=== PATIENT | female | born 1940 | race Caucasian/White ===

== ENCOUNTER 2019-02-24 03:29 | Emergency (ER) | payer MEDICARE ==
[~2019-02-24] VITALS: Ht 162.6 cm; Wt 48.5 kg
[~2019-02-24 03:29] MED LIST: CELEXA; DIAZEPAM; DOXYCYCLINE 10100 MG PO; NORCO 5-325 TA1 EACH PO; PREDNISONE 20 M20 MG PO
[2019-02-24 03:41] LABS: HEMATOCRIT 39.3 % (37.0-47.0); HEMOGLOBIN 13.5 gm/dL (12.0-15.0); MCH 35.3 pg (26.0-34.0); MCHC 34.3 g/dL (28.0-37.0); MCV 102.9 fL (80.0-100.0); MPV 7.1 fl. (7.2-11.1); NUCLEATED RBCS 0 /100WBC; PLATELET COUNT* 273 thou/uL (150-400); RBC 3.82 mil/uL (4.20-5.00); RDW-CV 13.2 % (10.5-14.5); WBC 10.3 thou/uL (4.0-11.0)
[2019-02-24] MEDS ORDERED: PLAVIX 75 MG TA75 M1 PO (03:51)
[2019-02-24] MEDS ORDERED: BAYER CHEWABLE81 MG PO (03:52)
[2019-02-24] MEDS ORDERED: COUMADIN 3 MG TA3 M1 PO (03:52)
[2019-02-24] MEDS ORDERED: ZESTRIL5 MG PO (03:53)
[2019-02-24 03:54] LABS: INR 1.6; PROTIME 16.3 Seconds (9.20-11.50)
[2019-02-24 03:57] LABS: ANION GAP 9 mmol/L (7-16); BUN 22 mg/dL (7-18); CALCIUM 8.6 mg/dL (8.5-10.1); CHLORIDE 97 mmol/L (98-107); CO2 26 mmol/L (21-32); GLUCOSE 100 mg/dL (70-99); POTASSIUM 4.2 mmol/L (3.5-5.1); SODIUM 132 mmol/L (136-145)
[2019-02-24 04:01] LABS: ALBUMIN 3.4 g/dL (3.4-5.0); ALKALINE PHOSPHATASE 59 U/L (46-116); NT-PRO BRAIN NAT PEPTIDE 3874 pg/mL (<300); SGOT 15 U/L (15-37); SGPT 17 U/L (30-65); TOTAL BILIRUBIN 0.4 mg/dL (<0.1-1.0); TOTAL PROTEIN 6.4 g/dL (6.4-8.2); TROPONIN-I LEVEL <0.06 ng/mL (<0.06)
[2019-02-24 04:09] LABS: BE 1.4 mmol/L (-2 to +3); PCO2 32.4 mmHg (35.0-45.0); PO2 114.9 mmHg (75.0-100.0); pH 7.487 (7.340-7.450)
[2019-02-24 04:21] LABS: URINE BILIRUBIN NEGATIVE (Negative); URINE BLOOD 2+ (Negative); URINE CLARITY CLEAR; URINE COLOR YELLOW; URINE GLUCOSE-RANDOM NEGATIVE (Negative); URINE KETONES NEGATIVE (Negative); URINE LEUKOCYTES-REFLEX NEGATIVE (Negative); URINE NITRITE-REFLEX NEGATIVE (Negative); URINE PROTEIN NEGATIVE (Negative); URINE UROBILINOGEN 0.2 E.U./dl (0.2-1.0)
[2019-02-24 05:18] LABS: BACTERIA-REFLEX >30 Many /HPF (None Seen); CELLULAR CASTS 0-3 Few /LPF (None Seen); COARSE GRANULAR CASTS 0-3 Few /LPF (None Seen); CRYSTALS None Seen /LPF (None Seen); FINE GRANULAR CASTS 0-3 Few /LPF (None Seen); HYALINE CASTS 4-10 Moderate /LPF (None Seen); MUCUS 4-6 Moderate strn/LPF (None Seen); SQUAMOUS 0-3 Few /LPF (0-3); WBC CLUMPS Few (None Seen)
[2019-02-24] MEDS ORDERED: CARDIZEM60 MG PO (05:28)
[2019-02-24] MEDS ORDERED: MACROBID 100 M100 M1 PO (05:50)
[2019-02-24 05:55] LABS: ABSOLUTE EOSINOPHILS 0.1 thou/uL (0.0-0.7); ABSOLUTE LYMPHOCYTES 6.7 thou/uL (0.8-5.3); ABSOLUTE MONOCYTES 0.6 thou/uL (0.0-1.2); ABSOLUTE NEUTROPHILS 2.9 thou/uL (1.6-8.1); ATYPICAL LYMPHS 2 %; PLATELET ESTIMATE ADEQUATE; TOXIC GRANULATION 1+
[2019-02-24 06:06] VITALS: BP 134/74
--- NOTE | 2019-02-26 14:44 | EKG ---
[place] [address] ELECTROCARDIOGRAM REPORT Name: ROBERT BRIDGES Room: [facility]#: [id number] Admission: 02/24/19 Attend Phys: Discharge: 02/24/19 Date of : 42 Report #: [id number] THIS REPORT FOR: //name// [facility] ED Test Date: 2019-02-24 Test Time: 03:34:11 Pat Name: ROBERT BRIDGES Department: Room: Gender: F [employer] Operator: JUAN : 1940 Requested By: Corrine Verma Order Number: [id number] MD: Horacio Basilio Measurements Intervals [place] Rate: 106 P: ME: QRS: 68 QRSD: 91 T: 8 QT: 384 QTc: 510 Interpretive Statements Atrial fibrillation Left ventricular hypertrophy Anterior Q waves, possibly due to LVH ST depr, consider ischemia, inferior leads Prolonged QT interval Baseline wander in lead(s) V5 No previous ECG available for comparison Electronically Signed On 02-26-2019 14:43:39 CDT by Horacio Basilio [email or web address] <ELECTRONICALLY SIGNED> By: Horacio Basilio MD, [facility] 02/26/19 1443 [id number] Horacio Basilio MD, [facility] /EPI
== END 2019-02-24 06:07 | disposition home or self-care (01) ==
LOC: M.ERS 03:29
PROVIDERS: Emergency Medicine
DX: I48.91 Unspecified atrial fibrillation (principal); N39.0 Urinary tract infection, site not specified; R42 Dizziness and giddiness; F32.9 Major depressive disorder, single episode, unspecified; Z88.5 Allergy status to narcotic agent